=== PATIENT | female | born 1975 | race Caucasian/White ===

== ENCOUNTER 2023-10-06 10:27 | Emergency (ER) | payer MEDICAID, OTHER ==
[~2023-10-06] VITALS: Ht 162.6 cm; Wt 48.7 kg
[2023-10-06] MEDS ORDERED: ALEV220T22 PO (10:51)
[2023-10-06] MEDS ORDERED: LOSARTAN 50MG TABLET PO ONE (11:30)
[2023-10-06] MEDS ORDERED: OXAZEPAM 15MG CAP PO ONE (11:30)
[2023-10-06] MEDS ORDERED: amLODIPine 5 MG TAB PO ONE (11:30)
[2023-10-06 11:43] LABS: BASO # 0.1 10^3/uL (0.0-0.2); BASO % 1.2 % (0.0-1.0); EOS # 0.1 10^3/uL (0.0-0.5); EOS % 1.4 % (0.0-3.0); HEMATOCRIT 34.5 % (36.0-47.0); HEMOGLOBIN 12.5 g/dl (12.0-15.5); LYMPH # 0.9 10^3/uL (1.5-5.0); LYMPH % 20.1 % (24.0-44.0); MEAN CORPUSCULAR HEMOGLOBIN 33.7 pg (27.0-33.0); MEAN CORPUSCULAR HGB CONC 36.2 g/dl (32.0-36.5); MONO # 0.4 10^3/uL (0.0-0.8); MONO % 9.5 % (2.0-8.0); NEUTROPHILS # 2.9 10^3/uL (1.5-8.5); NEUTROPHILS % 67.3 % (36.0-66.0); PLATELET COUNT, AUTOMATED 129 10^3/uL (150-450); RED BLOOD COUNT 3.71 10^6/uL (4.00-5.40); WHITE BLOOD COUNT 4.3 10^3/uL (4.0-10.0)
[2023-10-06 11:56] LABS: ETHYL ALCOHOL (ETHANOL) 0.014 % (0.000-0.010); LIPASE 63 U/L (12-53)
[2023-10-06 12:02] LABS: ALKALINE PHOSPHATASE 110 U/L (46-116); ALT/SGPT 54 U/L (7.0-40); AST/SGOT 199 U/L (<34); BILIRUBIN,DIRECT 0.3 MG/DL (<0.4); BILIRUBIN,TOTAL 0.8 MG/DL (0.3-1.2); BLOOD UREA NITROGEN < 5 MG/DL (9-23); CALCIUM LEVEL 9.2 MG/DL (8.5-10.1); CARBON DIOXIDE LEVEL 29 MMOL/L (20-31); CHLORIDE LEVEL 91 MMOL/L (98-107); CREATININE FOR GFR 0.61 MG/DL (0.55-1.30); GLOMERULAR FILTRATION RATE > 60.0 (>58); GLUCOSE, FASTING 114 MG/DL (60-100); POTASSIUM SERUM 3.1 MMOL/L (3.5-5.1); SODIUM LEVEL 124 MMOL/L (136-145); TOTAL PROTEIN 7.9 G/DL (5.7-8.2)
[2023-10-06 12:04] VITALS: BP 169/109
[2023-10-06] MEDS ORDERED: POTASSIUM CHLORIDE 10MEQ SR TABLET PO ONE (14:00)
[2023-10-06] MEDS ORDERED: GABA-1171 PO ×2 (14:47)
[2023-10-06] MEDS ORDERED: LAMO100T3 PO (14:47)
[2023-10-06] MEDS ORDERED: LOSA25TA13 PO ×2 (14:47→15:06)
[2023-10-06] MEDS ORDERED: AMLO1TAB25 PO (14:47)
[2023-10-06] MEDS ORDERED: PANT40TA29 PO (14:47)
[2023-10-06] MEDS ORDERED: MULT-40 PO (14:50)
[2023-10-06] MEDS ORDERED: HOME MED LIST COMPLETE! XX SCH (14:50)
[2023-10-06] MEDS ORDERED: AMLO1TAB24 PO (15:06)
[2023-10-06 15:45] VITALS: BP 155/100
[2023-10-06 16:00] VITALS: O2SAT 96
[2023-10-06 16:20] VITALS: TEMP 97.4
== END 2023-10-06 16:22 | disposition home or self-care (01) ==
LOC: M ED 10:27 → EDBD 10:27 → M ED 16:22
DX: F10.10 Alcohol abuse, uncomplicated (principal); E87.1 Hypo-osmolality and hyponatremia; I10 Essential (primary) hypertension; K21.9 Gastro-esophageal reflux disease without esophagitis; G40.909 Epilepsy, unspecified, not intractable, without status epilepticus; Z88.5 Allergy status to narcotic agent; Z91.148 Patient's other noncompliance with medication regimen for other reason; Z87.820 Personal history of traumatic brain injury; Z79.891 Long term (current) use of opiate analgesic; Z79.810 Long term (current) use of selective estrogen receptor modulators (SERMs); Z79.811 Long term (current) use of aromatase inhibitors; Z79.899 Other long term (current) drug therapy